=== PATIENT | male | born 1990 | race Caucasian/White ===

== ENCOUNTER 2020-08-02 08:05 | Emergency (ER) | payer OTHER ==
[~2020-08-02] VITALS: Ht 182.9 cm; Wt 90.7 kg
[~2020-08-02 08:05] MED LIST: ALBU90OI61 INH; AZIT500 PO; CEPH500 PO; DOC250 PO; GUAI600T33 PO; HYDACE5 PO; IBUP400; MAGCIT300 PO; METO10 PO; Norco 5-325 Ta1 EACH PO; PROM25 PO; SULTRIDS PO; Silvadene20 GM TOP
== END 2020-08-02 09:10 | disposition home or self-care (01) ==
LOC: ER 08:05
DX: S61.214A Laceration without foreign body of right ring finger without damage to nail, initial encounter (principal); Z79.899 Other long term (current) drug therapy; W23.0XXA Caught, crushed, jammed, or pinched between moving objects, initial encounter
CPT/HCPCS: 99282-25

== ENCOUNTER 2021-01-03 09:43 | Emergency (ER) | payer MEDICARE, OTHER ==
[~2021-01-03] VITALS: Ht 188 cm; Wt 90.7 kg
[2021-01-03] MEDS ORDERED: Vibramycin100 MG PO (11:34)
[2021-01-03] MEDS ORDERED: Naprosyn500 MG PO (11:34)
[2021-01-03] MEDS ORDERED: ACYC400 PO (11:34)
[2021-01-03 11:55] LABS: Source, Urine Clean Catch
[2021-01-03 11:59] LABS: Appearance, Urine Clear (Clear); Bilirubin, Urine Neg (Neg); Blood, Urine 1+ (Neg); Color, Urine Yellow (P-Yellow); Glucose Qualitative, Urine Neg (Neg); Ketones, Urine 1+ (Neg); Leukocyte Esterase, Urine 2+ (Neg); Nitrite, Urine Neg (Neg); Protein, Urine 2+ (Neg); Specific Gravity, Urine 1.025 (1.003-1.022); Urobilinogen, Urine 1+ (Normal)
[2021-01-03 12:12] LABS: Red Blood Cells, Urine 0-2 /hpf (0-2); White Blood Cells, Urine 50-100 /hpf (0-5)
[2021-01-03 12:13] LABS: Bacteria Few /hpf; Mucus Light (0-Heavy); Spermatozoa Mod /hpf; Squamous Epithelial Cells Rare /hpf (Few)
== END 2021-01-03 12:10 | disposition home or self-care (01) ==
LOC: ER 09:43
PROVIDERS: Emergency Medicine
DX: N45.1 Epididymitis (principal); I86.1 Scrotal varices; A60.02 Herpesviral infection of other male genital organs
CPT/HCPCS: 76870; 81001; 87086; 96372-59; 99284-25; A9270; J0696; J1885

== ENCOUNTER 2021-04-14 23:24 | Emergency (ER) | payer MEDICARE, OTHER ==
[~2021-04-14] VITALS: Ht 182.9 cm; Wt 81.7 kg
[~2021-04-14 23:24] MED LIST changes: +ACYC400 PO; +Naprosyn500 MG PO; +Vibramycin100 MG PO
[2021-04-15] MEDS ORDERED: NARCAN4 M1 (00:28)
== END 2021-04-15 00:48 | disposition home or self-care (01) ==
LOC: ER 23:24
DX: T40.1X1A Poisoning by heroin, accidental (unintentional), initial encounter (principal); R06.81 Apnea, not elsewhere classified
CPT/HCPCS: 36415; A9270; J2310

== ENCOUNTER 2022-05-21 15:43 | Emergency (ER) | payer MEDICARE, OTHER ==
[~2022-05-21] VITALS: Ht 188 cm; Wt 99.8 kg
[~2022-05-21 15:43] MED LIST changes: +NARCAN4 M1
[2022-05-21 16:35] LABS: BASOPHILS ABSOLUTE AUTO 0.03 K/mm3 (0.00-0.23); BASOPHILS PERCENT AUTO 0 % (0-2); EOSINOPHILS ABSOLUTE AUTO 0.14 K/mm3 (0.00-0.68); EOSINOPHILS PERCENT AUTO 1 % (0-6); Hematocrit 38.8 % (37.0-53.0); Hemoglobin 13.1 g/dL (13.5-17.5); IMMATURE GRAN ABSOLUTE AUTO 0.04 K/mm3 (0.00-0.10); IMMATURE GRAN PERCENT AUTO 0 % (0-1); LYMPHOCYTES ABSOLUTE AUTO 1.38 K/mm3 (0.84-5.20); LYMPHOCYTES PERCENT AUTO 10 % (21-46); MONOCYTES ABSOLUTE AUTO 1.06 K/mm3 (0.16-1.47); MONOCYTES PERCENT AUTO 8 % (4-13); Mean Corpuscular HGB 31.3 pg (26.0-34.0); Mean Corpuscular HGB Conc 33.8 g/dL (31.5-36.5); Mean Corpuscular Volume 93 fL (80-100); Mean Platelet Volume 8.8 fL (9.1-12.4); NEUTROPHILS ABSOLUTE AUTO 11.04 K/mm3 (1.96-9.15); NEUTROPHILS PERCENT AUTO 81 % (41-73); Platelet Count 409 K/mm3 (150-400); RDW Coefficient Variation 11.9 % (11.7-14.2); RDW Standard Deviation 40.7 fL (35.1-46.3); Red Blood Cell Count 4.19 M/mm3 (4.30-5.90); White Blood Cell Count 13.69 K/mm3 (4.00-11.30)
[2022-05-21 16:37] LABS: Source, Urine Clean Catch
[2022-05-21 16:46] LABS: Appearance, Urine Clear (Clear); Bilirubin, Urine Neg (Neg); Blood, Urine Neg (Neg); Color, Urine Yellow (P-Yellow); Glucose Qualitative, Urine Neg (Neg); Ketones, Urine Neg (Neg); Leukocyte Esterase, Urine Neg (Neg); Nitrite, Urine Neg (Neg); Protein, Urine Neg (Neg); Urobilinogen, Urine NORM (Normal)
[2022-05-21 16:57] LABS: Albumin, Blood 3.3 g/dL (3.4-5.0); Albumin/Globulin Ratio 0.8 (0.8-1.8); Bilirubin, Total 0.2 mg/dL (0.1-1.0); Bun/Creatinine Ratio 19.9 (12.0-20.0); Calcium, Blood 9.4 mg/dL (8.5-10.1); Creatinine, Blood 0.86 mg/dL (0.60-1.20); Globulin, Blood 3.9 g/dL (2.2-4.0); Potassium, Blood 4.7 mmol/L (3.5-5.5); Total Protein, Blood 7.2 g/dL (6.4-8.2)
[2022-05-21] MEDS ORDERED: CLIN300 PO (19:12)
[2022-05-21] MEDS ORDERED: LASIX20 M2 PO (19:12)
== END 2022-05-21 20:19 | disposition home or self-care (01) ==
LOC: ER 15:43
PROVIDERS: Emergency Medicine; Physician Assistant
DX: R60.0 Localized edema (principal); F19.10 Other psychoactive substance abuse, uncomplicated
CPT/HCPCS: 36415; 71046; 80053; 81003; 83880; 84484; 85025; 93005; 93010; J1885

== ENCOUNTER → 2023-05-12 | Outpatient (CLI) | payer MEDICARE, OTHER ==
[~2023-05-12] MED LIST changes: +CLIN300 PO; +GABA100 PO; +HYDPAM50; +LASIX20 M2 PO; +MELO7.5 PO; +TRAZ50 PO
[2023-05-12 17:36] LABS: Source, Urine Voided
[2023-05-12 18:23] LABS: Appearance, Urine Clear (Clear); Bilirubin, Urine Neg (Neg); Blood, Urine Neg (Neg); Glucose Qualitative, Urine Neg (Neg); Ketones, Urine Neg (Neg); Leukocyte Esterase, Urine Neg (Neg); Nitrite, Urine Neg (Neg); Protein, Urine Neg (Neg); Urobilinogen, Urine NORM (Normal); pH, Urine 6.5 (5.0-8.0)
[2023-05-12 18:31] LABS: Color, Urine Pale Yellow (P-Yellow)
== END | disposition home or self-care (01) ==
LOC: LAB SHORT 17:34 → LAB 17:34
PROVIDERS: Family Medicine
DX: R35.0 Frequency of micturition (principal)
CPT/HCPCS: 81003

== ENCOUNTER 2023-12-05 06:02 | Day surgery (SDC) | payer MEDICARE, OTHER ==
[~2023-12-05] VITALS: Ht 190.5 cm; Wt 86.7 kg
[2023-12-05] VITALS (13 sets, daily range): BP systolic 114–150; BP diastolic 45–93
[2023-12-05] MEDS ORDERED: Chlorhexidine Mouth Care 15 ML UDC MT SCH (06:20)
[2023-12-05] MEDS ORDERED: OxyCODONE HCL 10 MG TABCR PO SCH (06:20)
[2023-12-05] MEDS ORDERED: Lactated Ringer's 1,000 ML IV SCH ×2 (06:20→07:45)
[2023-12-05] MEDS ORDERED: Acetaminophen 500 MG Tab PO SCH ×2 (06:20→08:00)
[2023-12-05] MEDS ORDERED: Ropivacaine 0.5% HCl/Pf 123.125 MG,EPINEPHrine HCL 0.25 MG,Ketorolac Tromethamine 15 MG... INFIL SCH (06:20)
[2023-12-05] MEDS ORDERED: CeFAZolin Sodium 2,000 MG in NS 100 ML IV SCH ×2 (06:30→16:00)
[2023-12-05] MEDS ORDERED: Tranexamic Acid 100 ML IV SCH (06:31)
[2023-12-05] MEDS ORDERED: propofoL 60 ML IV ONE ×2 (06:54→08:31)
[2023-12-05] MEDS ORDERED: FentaNYL Citrate 50 MCG/ML 2 ML Injection ONE (06:54)
[2023-12-05] MEDS ORDERED: Phenylephrine HCl 100 MCG/ML-NS 10MLSYR (1MG/10ML) ONE (06:55)
[2023-12-05] MEDS ORDERED: Dexamethasone Sod Phos 10 MG/ML 1ML VIAL ONE (06:55)
[2023-12-05] MEDS ORDERED: Ondansetron HCl 2 MG / ML 2ML Vial ONE (06:55)
[2023-12-05] MEDS ORDERED: Vancomycin HCL 1,000 MG in NS 250 ML IV SCH (07:15)
[2023-12-05] MEDS ORDERED: Midazolam HCl 1MG / ML 2ML Vial ONE (07:28)
[2023-12-05] MEDS ORDERED: Magnesium Hydroxide Conc 10 ML UDC PO PRN (07:40)
[2023-12-05] MEDS ORDERED: Metoclopramide HCl 5MG / ML 2ML Vial IV PRN (07:40)
[2023-12-05] MEDS ORDERED: HYDROmorphone HCl/Pf 1MG SYR IV PRN (07:40)
[2023-12-05] MEDS ORDERED: Ondansetron HCl 2 MG / ML 2ML Vial IV PRN (07:40)
[2023-12-05] MEDS ORDERED: OxyCODONE HCL 5 MG TAB PO PRN ×2 (07:40)
[2023-12-05] MEDS ORDERED: Promethazine HCl 25 MG Tab PO PRN (07:40)
[2023-12-05] MEDS ORDERED: ePHEDrine Sulfate 50 MG/ML 1ML Injection ONE (07:42)
[2023-12-05] MEDS ORDERED: DiphenhydrAMINE HCL 25 MG Cap PO PRN (07:45)
[2023-12-05] MEDS ORDERED: Bisacodyl 10 MG Supp PR PRN (07:45)
[2023-12-05] MEDS ORDERED: Docusate Sodium 100 MG Cap PO SCH (09:00)
[2023-12-05] MEDS ORDERED: Ketorolac Tromethamine 30mg Vial ONE (09:55)
[2023-12-05] MEDS ORDERED: ACET500 PO (10:29)
[2023-12-05] MEDS ORDERED: OXYC5 PO (10:30)
[2023-12-05] MEDS ORDERED: OxyCODONE 5 mg/Acetamin 325 mg TABLET PO PRN (10:30)
[2023-12-05] MEDS ORDERED: ASPI81CH PO (10:30)
[2023-12-05] MEDS ORDERED: SULTRIDS PO (10:30)
--- NOTE | 2023-12-05 11:20 | NUR ---
PT ARRIVED TO UNIT AT APROX 1045. PT APPEARS TO BE SLEEPING COMFORTABLY, AWAKENS EASILY, DENIES PAIN. VSS ON ARRIVAL. IV FLUIDS CONTINUED UNTIL PTS FIRST VOID. DRESSING TO L KNEE C/D/I, POLAR PACK IN PLACE. PT REQUESTS TO SLEEP AT THIS TIME. 2ND DOSE TXA ADMINISTERED AT 1040.
[2023-12-05] MEDS ORDERED: Ketorolac Tromethamine 15mg Vial IV SCH (12:00)
--- NOTE | 2023-12-05 19:30 | NUR ---
PT POD 0 l TKA, AQUACEL DRESSING TO L KNEE C/D/I. PT VOIDING W/O DIFFICULTY. CLEARED THERAPY AND PLANNED TO GO HOME BUT NO MEDICATIONS WERE SENT TO [facility] PRIOR TO THEM CLOSING FOR THE DAY. PLAN TO DC HOME TOMORROW. PT GIRLFRIENT IN ROOM EARLIER IN SHIFT AND ASSISTED PT TO RESTROOM W/O CALLING FOR ASSISTANCE, THIS RN TO ROOM AND EDUCATED ON THE NEED TO CALL SO WE CAN ASSIST WITH THE IV LINE, WALKER. THIS RN ASSESSED IV AT THIS TIME ABX WERE FINISHED RUNNING, A DISCOLORED YELLOW/RED FLUID NOTED IN LINE THAT DID NOT APPEAR TO BE CONSISTENT WITH BACKFLOW. RN FLUSHED LINE AND CAPPED. RN THEN EDUCATED THAT VISITING HOURS END AT 7. MOM RETURNED FROM [facility] AND GIRLFRIEND WENT HOME AT THAT TIME.
[2023-12-05] MEDS ORDERED: Vancomycin HCL 1,000 MG in NS 250 ML IV ONE (20:00)
[2023-12-06 03:40] VITALS: BP 145/92
--- NOTE | 2023-12-06 04:34 | NUR ---
SHIFT SUMMARY POD 1 L TKA. NO ACUTE CHANGES OVERNIGHT. VSS. TOLERATING ORALS. VOIDING. AMB USING FWW c SBA. AQUACEL C/D/I, POLAR PACK IN USE. PT REPORTS INCREASED PAIN, PT STATES "I WAS A [place] ADDICT OUTSIDE OF HERE, THESE PAIN MEDS AREN'T DOING ANYTHING." PT EDUCATED ON PAIN MANAGEMENT AND USE OF ORAL MEDICATIONS ALONG WITH NON-PHARMACOLOGICAL METHODS. IV ABX INFUSING PER EMAR. PT BEGINNING TO REFUSE INTERVENTIONS TOWARDS END OF SHIFT. ANTICIPATED DISCHARGE TODAY. CALL LIGHT IN REACH, BED ALARM IN USE, WILL REPORT TO DAY RN.
[2023-12-06 06:52] LABS: BASOPHILS ABSOLUTE AUTO 0.04 K/mm3 (0.00-0.23); BASOPHILS PERCENT AUTO 0 % (0-2); EOSINOPHILS ABSOLUTE AUTO 0.04 K/mm3 (0.00-0.68); EOSINOPHILS PERCENT AUTO 0 % (0-6); Hematocrit 32.6 % (37.0-53.0); IMMATURE GRAN ABSOLUTE AUTO 0.08 K/mm3 (0.00-0.10); IMMATURE GRAN PERCENT AUTO 0 % (0-1); LYMPHOCYTES ABSOLUTE AUTO 2.76 K/mm3 (0.84-5.20); LYMPHOCYTES PERCENT AUTO 15 % (21-46); MONOCYTES ABSOLUTE AUTO 1.33 K/mm3 (0.16-1.47); MONOCYTES PERCENT AUTO 7 % (4-13); Mean Corpuscular HGB 30.8 pg (26.0-34.0); Mean Corpuscular HGB Conc 33.7 g/dL (31.5-36.5); Mean Corpuscular Volume 91 fL (80-100); NEUTROPHILS ABSOLUTE AUTO 14.06 K/mm3 (1.96-9.15); NEUTROPHILS PERCENT AUTO 77 % (41-73); Platelet Count 243 K/mm3 (150-400); RDW Coefficient Variation 11.9 % (11.7-14.2); RDW Standard Deviation 40.2 fL (35.1-46.3); Red Blood Cell Count 3.57 M/mm3 (4.30-5.90); White Blood Cell Count 18.31 K/mm3 (4.00-11.30)
[2023-12-06 07:13] LABS: Bun/Creatinine Ratio 14.4 (12.0-20.0); Calcium, Blood 8.8 mg/dL (8.5-10.1); Creatinine, Blood 0.9 mg/dL (0.60-1.20); Magnesium, Blood 1.7 mg/dL (1.6-2.4); Potassium, Blood 3.6 mmol/L (3.5-5.5)
[2023-12-06 07:39] VITALS: BP 137/90
--- NOTE | 2023-12-06 08:38 | NUR ---
DISCHARGE SUMMARY POD1 L TKA, A/OX4, VSS, TOLERATING PO, PAIN MANAGED PER EMAR, VOIDING INDEPENDENTLY, AMBULATING WELL. PT WAS SET FOR DISCHARGE LAST NIGHT BUT STAYD DUE TO SCRIPTS NOT BEING AVAILABLE BEFORE PHARMACY CLOSED. AQUACELLS X2 IN PLACCE TO L KNEE AND HOLT BOTH C/D/I, PROVIDED HIM AND FAMILY WITH DISCHAARGE INFORMATION INCLUDING HOME CARE, MEDICATIONS, AND FOLLOW UP APPOINTMENTS. IV ACCESS REMOVED FROM R WRIST. ESCORTED OUT VIA WC TO PRIVATE AUTO TO GO HOME WITH FAMILY.
[2023-12-06] MEDS ORDERED: Aspirin 81 MG Chew PO SCH (09:00)
== END 2023-12-06 08:13 | disposition home or self-care (01) ==
LOC: ORSCMMR 06:02 → ORD 07:30 → SURS 10:11 → ORD 10:30 → ORSCMMR 12-06 08:13 → SURS 12-06 08:13
PROVIDERS: Orthopaedic Surgery
PROC: 0SRD0JA Replacement of Left Knee Joint with Synthetic Substitute, Uncemented, Open Approach (ICD-10-PCS; principal; 2023-12-05 07:30)
DX: M17.0 Bilateral primary osteoarthritis of knee (principal); F41.9 Anxiety disorder, unspecified; F32.A Depression, unspecified; F17.290 Nicotine dependence, other tobacco product, uncomplicated; Z79.899 Other long term (current) drug therapy; Z68.36 Body mass index [BMI] 36.0-36.9, adult
CPT/HCPCS: 27447; 0055T; 36415; 73560-LT; 80048; 83735; 85025; 97110; 97116; 97162; A9270; C1713; C1776; J0171; J0690; J0735; J1100; J1885; J2250; J2371; J2405; J2704; J2795; J3010; J3370; J7050; J7120

== ENCOUNTER → 2024-02-18 | Outpatient (CLI) | payer MEDICARE, OTHER ==
[~2024-02-18] MED LIST changes: +ACET500 PO; +ASPI81CH PO; +OXYC5 PO
[2024-02-19 08:56] LABS: Chlamydia Trachomatis Urine NOT DETECTED (NOT DETECT); Neisseria Gonorrhoea Urine NOT DETECTED (NOT DETECT)
== END ==
LOC: LAB 14:56 → LAB SHORT 14:56
PROVIDERS: Physician Assistant
DX: R30.0 Dysuria (principal)
CPT/HCPCS: 87491; 87591

== ENCOUNTER → 2024-05-02 | Outpatient (CLI) | payer MEDICARE, OTHER | LOC: LAB SHORT 17:15 → LAB 17:15 | DX: L97.509 Non-pressure chronic ulcer of other part of unspecified foot with unspecified severity (principal) | CPT/HCPCS: 87070; 87075; 87077; 87147; 87186; 87205 ==

== ENCOUNTER 2024-10-26 18:07 | Emergency (ER) | payer MEDICARE, OTHER ==
[~2024-10-26] VITALS: Ht 185.4 cm; Wt 97.5 kg
[2024-10-26] MEDS ORDERED: NALOXONE HC1 MG/1 ML IM (18:33)
[2024-10-26] MEDS ORDERED: Ondansetron 4 MG SoluTab SL ONE (19:15)
[2024-10-26 21:30] VITALS: BP 160/92
== END 2024-10-26 21:40 ==
LOC: ER 18:07
DX: T40.601A Poisoning by unspecified narcotics, accidental (unintentional), initial encounter (principal); Z79.82 Long term (current) use of aspirin; Z79.899 Other long term (current) drug therapy
CPT/HCPCS: 99284; A9270

== ENCOUNTER → 2024-12-03 | Outpatient (CLI) | payer OTHER ==
[~2024-12-03] MED LIST changes: +NALOXONE HC1 MG/1 ML IM
== END ==
LOC: LAB 11:46 → LAB SHORT 11:46
DX: N48.9 Disorder of penis, unspecified (principal)
CPT/HCPCS: 86592